=== PATIENT | female | born 1990 | race Caucasian/White ===

== ENCOUNTER 2025-07-08 18:00 | Emergency (ER) | payer SELFPAY ==
[~2025-07-08] VITALS: Ht 152.4 cm; Wt 82.0 kg
[2025-07-08 18:11] VITALS: TEMP 36.9; O2SAT 99
[2025-07-08 20:10] VITALS: BP 137/97; PULSE 83; RESP 18
[2025-07-08] MEDS: IBUPROFEN 400MG TABLET PO ONE (20:10)
[2025-07-08] MEDS ORDERED: IBUP-2437 MT (20:14)
== END 2025-07-08 20:48 | disposition home or self-care (01) ==
LOC: ER 18:00
DX: S80.02XA Contusion of left knee, initial encounter (principal); X58.XXXA Exposure to other specified factors, initial encounter; Y93.89 Activity, other specified; Y92.89 Other specified places as the place of occurrence of the external cause; Y99.8 Other external cause status
CPT/HCPCS: 73560; 73600; 99284